=== PATIENT | female | born 1940 | race Caucasian/White ===

== ENCOUNTER → 2017-06-07 | Outpatient (CLI) | payer OTHER, MEDICARE | LOC: RAD 00:52 | DX: Z12.31 Encounter for screening mammogram for malignant neoplasm of breast (principal) ==

== ENCOUNTER → 2018-06-12 | Outpatient (CLI) | payer OTHER, MEDICARE ==
[~2018-06-12] MED LIST: HYDROCODONE-AP1 EAC6 PO
== END ==
LOC: RAD 01:23
DX: Z12.31 Encounter for screening mammogram for malignant neoplasm of breast (principal); I10 Essential (primary) hypertension; E03.9 Hypothyroidism, unspecified; E78.5 Hyperlipidemia, unspecified

== ENCOUNTER → 2019-07-24 | Outpatient (CLI) | payer OTHER, MEDICARE | LOC: RAD 02:28 | DX: Z12.31 Encounter for screening mammogram for malignant neoplasm of breast (principal) ==